=== PATIENT | female | born 1970 | race Caucasian/White ===

== ENCOUNTER 2018-03-16 05:49 | Observation (INO) | payer OTHER ==
[2018-03-16] MEDS: CEFAZOLIN 1 GM/50 ML (PMX) 50 ML IVPB (06:00)
[2018-03-16] MEDS: SOD CHLORIDE 0.9% 1,000 ML IV (06:00)
[2018-03-16 06:46] LABS: ADD MAN DIFF? NO
[2018-03-16 06:48] LABS: WHITE BLOOD COUNT 10.5 10^3/ul (4.8-10.8)
[2018-03-16 06:48] LABS: BASOPHILS % 0.4 % (0.0-2.0); EOSINOPHILS # 0.2 10^3/ul (0.0-0.5); EOSINOPHILS % 1.5 % (0.0-7.0); HEMATOCRIT 37.8 % (37.0-47.0); HEMOGLOBIN 12.3 g/dl (12.0-16.0); LYMPHOCYTES # 2.8 10^3/ul (0.8-2.9); LYMPHOCYTES % 26.8 % (15.0-51.0); MEAN CORPUSCULAR HEMOGLOBIN 28.2 pg (29.0-33.0); MEAN CORPUSCULAR HGB CONC 32.5 g/dl (32.0-37.0); MEAN CORPUSCULAR VOLUME 86.7 fl (82.0-101.0); MEAN PLATELET VOLUME 12.3 fl (7.4-10.4); MONOCYTE # 0.9 10^3/ul (0.3-0.9); MONOCYTES % 8.3 % (0.0-11.0); NEUTROPHIL # 6.6 10^3/ul (1.6-7.5); NEUTROPHILS % 62.6 % (39.0-77.0); PLATELET COUNT 249 10^3/UL (140-415); RED BLOOD COUNT 4.36 10^6/ul (4.20-5.40); RED CELL DISTRIBUTION WIDTH 16.8 % (11.5-14.5)
[2018-03-16] MEDS ORDERED: SUCCINYLCHOLINE CHLORIDE 100 MG/5 ML SYG IV (07:00)
[2018-03-16 07:07] LABS: INR 0.85; PROTIME 11.7 Sec (11.9-14.9); PT RATIO 0.9
[2018-03-16 07:08] LABS: PARTIAL THROMBOPLASTIN TIME 27.5 Sec (25.0-35.0)
[2018-03-16 07:19] LABS: ALANINE AMINOTRANSFERASE 28 IU/L (13-69); ALBUMIN/GLOBULIN RATIO 1.14; ALKALINE PHOSPHATASE 105 IU/L (42-121); ANION GAP 13 (8-16); ASPARTATE AMINO TRANSFERASE 27 IU/L (15-46); BILIRUBIN,INDIRECT 0.2 mg/dl (0-1.1); BILIRUBIN,TOTAL 0.2 mg/dl (0.2-1.3); CARBON DIOXIDE 26 mmol/L (21-31); CHLORIDE 109 mmol/L (97-110); GLUCOSE 97 mg/dl (70-220); TOTAL PROTEIN 7.5 g/dl (6.1-8.1)
[2018-03-16 07:21] LABS: BLOOD UREA NITROGEN 11 mg/dl (7-20); CALCIUM 9.6 mg/dl (8.4-10.2); CREATININE 0.71 mg/dl (0.44-1.00); POTASSIUM 3.9 mmol/L (3.5-5.1); SODIUM 144 mmol/L (135-144)
[2018-03-16] MEDS: LIDOCAINE 1% (MPF) 30 ML INJ (07:23)
[2018-03-16] MEDS: BUPIVACAINE 0.25%/EPI (MDV) 50 ML VIAL INJ (07:23)
[2018-03-16] MEDS ORDERED: CEFAZOLIN 1 GM INJ (07:52)
[2018-03-16] MEDS ORDERED: PROPOFOL 20 ML ×2 (07:53→09:27)
[2018-03-16] MEDS ORDERED: ROCURONIUM 50 MG INJ ×2 (07:54→08:46)
[2018-03-16] MEDS ORDERED: ONDANSETRON 4 MG INJ (07:54)
[2018-03-16] MEDS ORDERED: LIDOCAINE 2% (SDV) 5 ML INJ (07:54)
[2018-03-16] MEDS ORDERED: FENTAnyl 50 MCG/ML VIAL (07:54)
[2018-03-16] MEDS ORDERED: SUGAMMADEX SODIUM 200 MG/2 ML VIAL IV (07:55)
[2018-03-16] MEDS ORDERED: HYDROmorphONE 2 MG/ML SYG (08:31)
[2018-03-16] MEDS ORDERED: DEXAMETHASONE 4 MG/ML 1 ML INJ (08:36)
[2018-03-16] MEDS ORDERED: KETOROLAC 30 MG INJ (10:00)
[2018-03-16] MEDS: HYDROmorphONE (0.2 MG/ML) 10ML SYG IV ×5 (10:30→11:01)
[2018-03-16] MEDS ORDERED: HYDROmorphONE (0.2 MG/ML) 10ML SYG IV (10:30)
[2018-03-16] MEDS ORDERED: FENTAnyl 50 MCG/ML VIAL IV (10:30)
[2018-03-16] MEDS ORDERED: HYDROCODONE/APAP (5/325) TAB PO (11:00)
[2018-03-16] MEDS: ONDANSETRON 4 MG INJ IV ×3 (11:08→20:33)
[2018-03-16] MEDS ORDERED: HYDROmorphONE 0.5 MG/0.5 ML SYG IV ×2 (13:12→14:00)
[2018-03-16] MEDS: ALBUTEROL 0.083% (NEB) 2.5 MG/3 ML AMP HHN ×2 (14:00→20:00)
[2018-03-16] MEDS: HYDROmorphONE 0.5 MG/0.5 ML SYG IV ×2 (14:03→20:23)
[2018-03-16] MEDS: IBUPROFEN 600 MG TAB PO ×2 (15:28→20:22)
[2018-03-16] MEDS: FAMOTIDINE 20 MG TAB PO ×2 (15:28→20:22)
[2018-03-16] MEDS: LOSARTAN 50 MG TAB PO (15:29)
[2018-03-16] MEDS: AMLODIPINE 5 MG TAB PO (15:30)
[2018-03-16] MEDS: HYDROCODONE/APAP (5/325) TAB PO (18:18)
[2018-03-17] MEDS: HYDROmorphONE 0.5 MG/0.5 ML SYG IV ×4 (02:59→21:14)
[2018-03-17] MEDS: LEVOTHYROXINE 150 MCG TAB PO (05:50)
[2018-03-17 06:39] LABS: ADD MAN DIFF? NO
[2018-03-17 06:48] LABS: WHITE BLOOD COUNT 14.8 10^3/ul (4.8-10.8)
[2018-03-17 06:48] LABS: BASOPHILS % 0.1 % (0.0-2.0); EOSINOPHILS % 0.1 % (0.0-7.0); HEMATOCRIT 34.8 % (37.0-47.0); HEMOGLOBIN 11.2 g/dl (12.0-16.0); LYMPHOCYTES # 1.8 10^3/ul (0.8-2.9); LYMPHOCYTES % 12.4 % (15.0-51.0); MEAN CORPUSCULAR HEMOGLOBIN 28.3 pg (29.0-33.0); MEAN CORPUSCULAR HGB CONC 32.2 g/dl (32.0-37.0); MEAN CORPUSCULAR VOLUME 87.9 fl (82.0-101.0); MEAN PLATELET VOLUME 12.6 fl (7.4-10.4); MONOCYTE # 1.1 10^3/ul (0.3-0.9); MONOCYTES % 7.5 % (0.0-11.0); NEUTROPHIL # 11.7 10^3/ul (1.6-7.5); NEUTROPHILS % 79.4 % (39.0-77.0); PLATELET COUNT 216 10^3/UL (140-415); RED BLOOD COUNT 3.96 10^6/ul (4.20-5.40); RED CELL DISTRIBUTION WIDTH 16.9 % (11.5-14.5)
[2018-03-17 07:21] LABS: ALANINE AMINOTRANSFERASE 22 IU/L (13-69); ALBUMIN 3.5 g/dl (3.3-4.9); ALBUMIN/GLOBULIN RATIO 1.02; ALKALINE PHOSPHATASE 82 IU/L (42-121); ANION GAP 14 (8-16); ASPARTATE AMINO TRANSFERASE 21 IU/L (15-46); BILIRUBIN,INDIRECT 0.3 mg/dl (0-1.1); BILIRUBIN,TOTAL 0.3 mg/dl (0.2-1.3); BLOOD UREA NITROGEN 13 mg/dl (7-20); CALCIUM 9.2 mg/dl (8.4-10.2); CARBON DIOXIDE 27 mmol/L (21-31); CHLORIDE 106 mmol/L (97-110); CREATININE 0.92 mg/dl (0.44-1.00); GLUCOSE 139 mg/dl (70-220); POTASSIUM 4.7 mmol/L (3.5-5.1); SODIUM 142 mmol/L (135-144); TOTAL PROTEIN 6.9 g/dl (6.1-8.1)
[2018-03-17 07:29] LABS: CHOL/HDL RATIO 3.7 RATIO; CHOLESTEROL 261 mg/dl (100-200); HDL CHOLESTEROL 70 mg/dl (34-88); LDL CHOLESTEROL,CALCULATED 161 mg/dl; MAGNESIUM 2.2 mg/dl (1.7-2.5); TRIGLYCERIDES 152 mg/dl (0-149)
[2018-03-17 07:29] LABS: PHOSPHORUS 3.5 mg/dl (2.5-4.9)
[2018-03-17 07:40] LABS: FREE T4 (FREE THYROXINE) 1.08 ng/dl (0.64-1.79)
[2018-03-17] MEDS: ALBUTEROL 0.083% (NEB) 2.5 MG/3 ML AMP HHN ×3 (07:54→19:23)
[2018-03-17] MEDS: IBUPROFEN 600 MG TAB PO ×3 (09:00→21:14)
[2018-03-17] MEDS: FAMOTIDINE 20 MG TAB PO ×2 (09:20→21:13)
[2018-03-17] MEDS: AMLODIPINE 5 MG TAB PO (09:21)
[2018-03-17] MEDS: LOSARTAN 50 MG TAB PO (09:21)
[2018-03-17] MEDS: ONDANSETRON 4 MG INJ IV ×2 (09:30→21:21)
[2018-03-17] MEDS: HYDROCODONE/APAP (5/325) TAB PO ×3 (13:01→21:46)
[2018-03-17 13:03] LABS: ADD UMIC NO; UR ASCORBIC ACID 40 mg/dL (NEGATIVE); UR BILIRUBIN (Dip) NEGATIVE (NEGATIVE); UR BLOOD (Dip) NEGATIVE (NEGATIVE); UR CLARITY SLIGHTLY CLOUDY (CLEAR); UR COLOR YELLOW (YELLOW); UR GLUCOSE (Dip) NEGATIVE (NEGATIVE); UR KETONES (Dip) NEGATIVE (NEGATIVE); UR LEUKOCYTE ESTERASE (Dip) NEGATIVE Leu/ul (NEGATIVE); UR NITRITE (Dip) NEGATIVE (NEGATIVE); UR RBC 0 /HPF (0-5); UR SPECIFIC GRAVITY (Dip) 1.017 (1.003-1.030); UR SQUAMOUS EPITHELIAL CELL MODERATE /HPF (FEW); UR TOTAL PROTEIN (Dip) NEGATIVE (NEGATIVE); UR UROBILINOGEN (Dip) NEGATIVE (NEGATIVE); UR WBC 2 /HPF (0-5)
[2018-03-17] MEDS: GABAPENTIN 300 MG CAP PO ×2 (13:47→21:14)
[2018-03-18] MEDS: HYDROCODONE/APAP (5/325) TAB PO ×2 (05:17→16:18)
[2018-03-18] MEDS: LEVOTHYROXINE 150 MCG TAB PO (05:17)
[2018-03-18 06:34] LABS: ADD MAN DIFF? NO
[2018-03-18 06:39] LABS: WHITE BLOOD COUNT 9.6 10^3/ul (4.8-10.8)
[2018-03-18 06:39] LABS: BASOPHILS % 0.2 % (0.0-2.0); EOSINOPHILS # 0.1 10^3/ul (0.0-0.5); EOSINOPHILS % 0.8 % (0.0-7.0); HEMATOCRIT 37.5 % (37.0-47.0); HEMOGLOBIN 12.1 g/dl (12.0-16.0); LYMPHOCYTES # 2.2 10^3/ul (0.8-2.9); MEAN CORPUSCULAR HEMOGLOBIN 28.7 pg (29.0-33.0); MEAN CORPUSCULAR HGB CONC 32.3 g/dl (32.0-37.0); MEAN CORPUSCULAR VOLUME 88.9 fl (82.0-101.0); MEAN PLATELET VOLUME 12.6 fl (7.4-10.4); MONOCYTE # 0.8 10^3/ul (0.3-0.9); MONOCYTES % 7.9 % (0.0-11.0); NEUTROPHIL # 6.5 10^3/ul (1.6-7.5); NEUTROPHILS % 67.6 % (39.0-77.0); PLATELET COUNT 211 10^3/UL (140-415); RED BLOOD COUNT 4.22 10^6/ul (4.20-5.40); RED CELL DISTRIBUTION WIDTH 17.3 % (11.5-14.5)
[2018-03-18 06:58] LABS: ANION GAP 15 (8-16); BLOOD UREA NITROGEN 14 mg/dl (7-20); CALCIUM 9.1 mg/dl (8.4-10.2); CARBON DIOXIDE 25 mmol/L (21-31); CHLORIDE 105 mmol/L (97-110); CREATININE 0.92 mg/dl (0.44-1.00); GLUCOSE 117 mg/dl (70-220); SODIUM 141 mmol/L (135-144)
[2018-03-18 07:03] LABS: PHOSPHORUS 4.6 mg/dl (2.5-4.9)
[2018-03-18] MEDS: ALBUTEROL 0.083% (NEB) 2.5 MG/3 ML AMP HHN ×3 (07:15→20:36)
[2018-03-18] MEDS: LOSARTAN 50 MG TAB PO (08:17)
[2018-03-18] MEDS: GABAPENTIN 300 MG CAP PO ×3 (08:17→20:04)
[2018-03-18] MEDS: IBUPROFEN 600 MG TAB PO ×2 (08:17→13:58)
[2018-03-18] MEDS: FAMOTIDINE 20 MG TAB PO ×2 (08:17→20:05)
[2018-03-18] MEDS: AMLODIPINE 5 MG TAB PO (08:18)
[2018-03-18] MEDS: HYDROmorphONE 0.5 MG/0.5 ML SYG IV ×2 (12:23→19:58)
[2018-03-18] MEDS: ONDANSETRON 4 MG INJ IV ×2 (12:25→20:04)
== END 2018-03-18 21:30 | disposition home or self-care (01) ==
LOC: SDS 05:49 → REC 11:51 → MS1 12:22 → MS4 14:12
DX: K43.2 Incisional hernia without obstruction or gangrene (principal); R09.02 Hypoxemia; I10 Essential (primary) hypertension; E03.9 Hypothyroidism, unspecified; E78.5 Hyperlipidemia, unspecified; E66.9 Obesity, unspecified; Z68.34 Body mass index [BMI] 34.0-34.9, adult; R73.03 Prediabetes; Z88.8 Allergy status to other drugs, medicaments and biological substances
CPT/HCPCS: 49656; 71045; 80048; 80053; 80061; 81001; 81003; 83036; 83735; 84100; 84439; 84443; 85025; 85610; 85730; 87086; 88302; 93005; 94640; 97162; G0378

== ENCOUNTER 2018-04-07 19:08 | Emergency (ER) | payer OTHER ==
[2018-04-08] MEDS ORDERED: KETOROLAC 30 MG INJ IV (00:33)
[2018-04-08 01:52] LABS: ADD MAN DIFF? NO
[2018-04-08 01:54] LABS: BASOPHILS % 0.5 % (0.0-2.0); EOSINOPHILS # 0.3 10^3/ul (0.0-0.5); EOSINOPHILS % 3.8 % (0.0-7.0); HEMATOCRIT 37.6 % (37.0-47.0); HEMOGLOBIN 12.1 g/dl (12.0-16.0); LYMPHOCYTES # 2.4 10^3/ul (0.8-2.9); MEAN CORPUSCULAR HEMOGLOBIN 28.3 pg (29.0-33.0); MEAN CORPUSCULAR HGB CONC 32.2 g/dl (32.0-37.0); MEAN CORPUSCULAR VOLUME 88.1 fl (82.0-101.0); MEAN PLATELET VOLUME 12.1 fl (7.4-10.4); MONOCYTE # 0.7 10^3/ul (0.3-0.9); MONOCYTES % 7.6 % (0.0-11.0); NEUTROPHIL # 5.1 10^3/ul (1.6-7.5); NEUTROPHILS % 59.7 % (39.0-77.0); PLATELET COUNT 330 10^3/UL (140-415); RED BLOOD COUNT 4.27 10^6/ul (4.20-5.40); RED CELL DISTRIBUTION WIDTH 15.7 % (11.5-14.5)
[2018-04-08 01:54] LABS: WHITE BLOOD COUNT 8.5 10^3/ul (4.8-10.8)
[2018-04-08 02:04] LABS: URINE BLOOD (Dip) POC 2+ (NEGATIVE); URINE GLUCOSE (Dip) POC Negative (NEGATIVE); URINE KETONES (Dip) POC Negative (NEGATIVE); URINE LEUKOCYTE EST (Dip) POC Trace (NEGATIVE); URINE NITRITE (Dip) POC Negative (NEGATIVE); URINE TOTAL PROTEIN POC Negative (NEGATIVE)
[2018-04-08] MEDS: morphine 2 MG INJ IV (02:08)
[2018-04-08] MEDS: ONDANSETRON 4 MG INJ IV (02:08)
[2018-04-08 02:25] LABS: ALANINE AMINOTRANSFERASE 33 IU/L (13-69); ALBUMIN 4.2 g/dl (3.3-4.9); ALBUMIN/GLOBULIN RATIO 1.35; ALKALINE PHOSPHATASE 84 IU/L (42-121); ANION GAP 15 (8-16); ASPARTATE AMINO TRANSFERASE 26 IU/L (15-46); BILIRUBIN,INDIRECT 0.1 mg/dl (0-1.1); BILIRUBIN,TOTAL 0.1 mg/dl (0.2-1.3); BLOOD UREA NITROGEN 13 mg/dl (7-20); CALCIUM 9.9 mg/dl (8.4-10.2); CARBON DIOXIDE 27 mmol/L (21-31); CHLORIDE 102 mmol/L (97-110); CREATININE 0.86 mg/dl (0.44-1.00); GLUCOSE 119 mg/dl (70-220); LIPASE 69 U/L (23-300); POTASSIUM 4.3 mmol/L (3.5-5.1); SODIUM 140 mmol/L (135-144); TOTAL PROTEIN 7.3 g/dl (6.1-8.1)
== END 2018-04-08 04:59 | disposition home or self-care (01) ==
LOC: E/R 19:08
DX: L03.311 Cellulitis of abdominal wall (principal); I10 Essential (primary) hypertension; E66.9 Obesity, unspecified; E03.9 Hypothyroidism, unspecified; Z68.34 Body mass index [BMI] 34.0-34.9, adult
CPT/HCPCS: 36415; 74176; 80053; 81003; 81025; 83690; 85025; 96374; 96375; 99285-25

== ENCOUNTER 2018-09-26 08:46 | Day surgery (SDC) | payer OTHER | END 2018-09-26 14:39 | disposition home or self-care (01) | LOC: GIL 08:46 | DX: K29.50 Unspecified chronic gastritis without bleeding (principal); K44.9 Diaphragmatic hernia without obstruction or gangrene; K64.8 Other hemorrhoids; I10 Essential (primary) hypertension | CPT/HCPCS: 43239; 84703; 88305; 88312 ==